=== PATIENT | male | born 1950 | race Caucasian/White ===

== ENCOUNTER 2023-03-30 12:43 | Inpatient (IN) | payer MEDICARE ==
[~2023-03-30 12:43] MED LIST: Magnevist 469MG/ML 20 ML VIAL ONE
[2023-03-30] MEDS ORDERED: Proparacaine 0.5% Opth 15 ML BOT ONE (13:15)
[2023-03-30] MEDS ORDERED: diphenhydrAMINE 50 MG/ML VIAL ONE (13:15)
[2023-03-30] MEDS ORDERED: Prochlorperazine 10 MG/2 ML VIAL ONE (13:15)
[2023-03-30 13:21] LABS: #Eosinphils 0.1 thou/uL (0.0-0.7); #Monocytes 0.3 thou/uL (0.11-0.59); #Neutrophils 6.2 thou/uL (1.40-6.50); %Basophils 0.4 % (0.0-1.0); %Eosinophils 0.6 % (0.0-10.0); %Lymphocytes 17.7 % (21.0-51.0); %Monocytes 4.2 % (0.0-10.0); %Neutrophils 76.7 % (42.0-75.0); Hemoglobin 14.8 g/dL (14.0-18.0); Mean Corpuscular HGB CONC 32.7 g/dL (32.0-36.0); Mean Corpuscular Hemoglobin 31.6 pg (27.0-31.0); Mean Corpuscular Volume 96.6 fl (78.0-98.0); Mean Platelet Volume 11.3 fL (7.4-10.4); Platelet Count 204 10x3/uL (130-400); RBC Distribution Width 12.9 % (11.5-14.5); Red Blood Cell (RBC) Count 4.68 mill/uL (4.70-6.10); White Blood Cell (WBC) Count 8.1 10x3/uL (4.8-10.8)
[2023-03-30] MEDS ORDERED: HYDROcodone/Acetaminophen 5/325 mg Tablet PO PRN (13:45)
[2023-03-30] MEDS ORDERED: Ondansetron PF 4 MG/2 ML Vial IVP PRN (13:45)
[2023-03-30] MEDS ORDERED: Acetaminophen 325 MG TAB PO PRN (13:45)
[2023-03-30 13:46] LABS: ALT (SGPT) 18 U/L (8-55); AST (SGOT) 12 U/L (5-34); Albumin 4.2 g/dL (3.4-4.8); Alkaline Phosphatase 71 U/L (40-110); Anion Gap 13 mmol/L (10-20); BUN (Urea Nitrogen) 16 mg/dL (8.4-25.7); Bilirubin, Total 0.7 mg/dL (0.2-1.2); Calc. Creatinine Clearance 0 mL/min (70-130); Calcium 9.1 mg/dL (7.8-10.44); Carbon Dioxide 21 mmol/L (23-31); Chloride 108 mmol/L (98-107); Estimated GFR 67; Globulin 2.8 g/dL (2.4-3.5); Glucose 147 mg/dL (83-110); Potassium 4.1 mmol/L (3.5-5.1); Sodium 138 mmol/L (136-145)
[2023-03-30 14:25] LABS: Hemoglobin A1c 6.7 % (4.0-6.0)
[2023-03-30] MEDS ORDERED: Aspirin 81 mg Enteric Coated Tablet PO SCH (14:30)
[2023-03-30] MEDS ORDERED: Morphine 4 MG/ML VIAL SLOW IVP PRN (16:07)
[2023-03-30] MEDS ORDERED: Dextrose 5% in Water 1,000 ML IV PRN (16:19)
[2023-03-30] MEDS ORDERED: HumaLOG 300 UNITS/3 ML VIAL SC PRN (16:19)
[2023-03-30] MEDS ORDERED: Dextrose 50% Abboject 50 ML SYRINGE SLOW IVP PRN (16:19)
[2023-03-30] MEDS ORDERED: Aspirin Chewable 81 MG TAB ONE (17:32)
[2023-03-30] MEDS ORDERED: Acetaminophen 325 MG TAB ONE (17:32)
[2023-03-30 21:21] VITALS: BMI 29.6
[2023-03-30] MEDS: Atorvastatin Calcium 40 MG TAB PO SCH (22:24)
[2023-03-31 04:35] LABS: #Eosinphils 0.1 thou/uL (0.0-0.7); #Monocytes 0.6 thou/uL (0.11-0.59); #Neutrophils 5.5 thou/uL (1.40-6.50); %Basophils 0.5 % (0.0-1.0); %Eosinophils 1.3 % (0.0-10.0); %Monocytes 7.3 % (0.0-10.0); %Neutrophils 62.6 % (42.0-75.0); Hemoglobin 14.3 g/dL (14.0-18.0); Mean Corpuscular HGB CONC 32.4 g/dL (32.0-36.0); Mean Corpuscular Hemoglobin 31.5 pg (27.0-31.0); Mean Corpuscular Volume 97.4 fl (78.0-98.0); Mean Platelet Volume 11.4 fL (7.4-10.4); Platelet Count 196 10x3/uL (130-400); RBC Distribution Width 12.8 % (11.5-14.5); Red Blood Cell (RBC) Count 4.54 mill/uL (4.70-6.10); White Blood Cell (WBC) Count 8.8 10x3/uL (4.8-10.8)
[2023-03-31 04:59] LABS: Anion Gap 13 mmol/L (10-20); BUN (Urea Nitrogen) 13 mg/dL (8.4-25.7); Calc. Creatinine Clearance 86 mL/min (70-130); Carbon Dioxide 22 mmol/L (23-31); Cardiac Risk 4.8 (Less than 4.5); Chloride 108 mmol/L (98-107); Cholesterol 191 mg/dl (< 200 Desired); Estimated GFR 85; Glucose 116 mg/dL (83-110); HDL Cholesterol 40 mg/dL (>60 Neg Risk); LDL Cholesterol, Calculated 101 mg/dL; Potassium 3.7 mmol/L (3.5-5.1); Sodium 139 mmol/L (136-145); Triglycerides 251 mg/dL (Less than 150)
[2023-03-31] MEDS: Fish Oil 1,000 MG CAP PO SCH (09:33)
[2023-03-31] MEDS: Escitalopram Oxalate 10 mg Tablet PO SCH (09:33)
[2023-03-31] MEDS: Aspirin 81 mg Enteric Coated Tablet PO SCH (09:33)
[2023-03-31] MEDS: Atorvastatin Calcium 40 MG TAB PO SCH (20:18)
[2023-04-01 05:47] LABS: #Basophils 0.1 thou/uL (0.0-0.2); #Eosinphils 0.2 thou/uL (0.0-0.7); #Monocytes 0.7 thou/uL (0.11-0.59); #Neutrophils 5.4 thou/uL (1.40-6.50); %Basophils 0.6 % (0.0-1.0); %Lymphocytes 28.6 % (21.0-51.0); %Monocytes 8.1 % (0.0-10.0); %Neutrophils 60.3 % (42.0-75.0); Hemoglobin 14.5 g/dL (14.0-18.0); Mean Corpuscular HGB CONC 33.1 g/dL (32.0-36.0); Mean Corpuscular Hemoglobin 31.9 pg (27.0-31.0); Mean Corpuscular Volume 96.5 fl (78.0-98.0); Mean Platelet Volume 11.1 fL (7.4-10.4); Platelet Count 201 10x3/uL (130-400); RBC Distribution Width 12.8 % (11.5-14.5); Red Blood Cell (RBC) Count 4.54 mill/uL (4.70-6.10)
[2023-04-01 06:43] LABS: Anion Gap 14 mmol/L (10-20); BUN (Urea Nitrogen) 16 mg/dL (8.4-25.7); Calc. Creatinine Clearance 81 mL/min (70-130); Calcium 9.2 mg/dL (7.8-10.44); Carbon Dioxide 22 mmol/L (23-31); Chloride 106 mmol/L (98-107); Estimated GFR 79; Glucose 112 mg/dL (83-110); Potassium 3.5 mmol/L (3.5-5.1); Sodium 138 mmol/L (136-145)
[2023-04-01] MEDS: Fish Oil 1,000 MG CAP PO SCH (10:41)
[2023-04-01] MEDS: Aspirin 81 mg Enteric Coated Tablet PO SCH (10:41)
[2023-04-01] MEDS: Escitalopram Oxalate 10 mg Tablet PO SCH (10:41)
[2023-04-01] MEDS ORDERED: Zolpidem Tartrate 5 MG TAB PO PRN (19:48)
[2023-04-01] MEDS: Atorvastatin Calcium 40 MG TAB PO SCH (20:06)
[2023-04-02 05:29] LABS: #Eosinphils 0.2 thou/uL (0.0-0.7); #Monocytes 0.8 thou/uL (0.11-0.59); #Neutrophils 4.8 thou/uL (1.40-6.50); %Basophils 0.4 % (0.0-1.0); %Eosinophils 2.1 % (0.0-10.0); %Lymphocytes 33.7 % (21.0-51.0); %Monocytes 9.3 % (0.0-10.0); %Neutrophils 54.3 % (42.0-75.0); Mean Corpuscular HGB CONC 32.3 g/dL (32.0-36.0); Mean Corpuscular Hemoglobin 30.9 pg (27.0-31.0); Mean Corpuscular Volume 95.7 fl (78.0-98.0); Mean Platelet Volume 11.4 fL (7.4-10.4); Platelet Count 213 10x3/uL (130-400); RBC Distribution Width 12.7 % (11.5-14.5); Red Blood Cell (RBC) Count 5.17 mill/uL (4.70-6.10); White Blood Cell (WBC) Count 8.9 10x3/uL (4.8-10.8)
[2023-04-02 06:01] LABS: Anion Gap 13 mmol/L (10-20); BUN (Urea Nitrogen) 20 mg/dL (8.4-25.7); Calc. Creatinine Clearance 80 mL/min (70-130); Calcium 9.1 mg/dL (7.8-10.44); Carbon Dioxide 20 mmol/L (23-31); Chloride 106 mmol/L (98-107); Estimated GFR 78; Glucose 122 mg/dL (83-110); Potassium 3.4 mmol/L (3.5-5.1); Sodium 136 mmol/L (136-145)
[2023-04-02] MEDS: Aspirin 81 mg Enteric Coated Tablet PO SCH (08:58)
[2023-04-02] MEDS: Fish Oil 1,000 MG CAP PO SCH (08:58)
[2023-04-02] MEDS: Escitalopram Oxalate 10 mg Tablet PO SCH (08:58)
[2023-04-02 12:06] VITALS: BP 121/76; TEMP 97.9
== END 2023-04-02 15:38 | disposition home or self-care (01) | DRG 64 ==
LOC: SUATTDRO 12:43 → ERS 12:43 → ERHOLD 13:50 → NEURO 21:01
PROVIDERS: ADMIT Internal Medicine; ATTEND Internal Medicine
DX: I63.431 Cerebral infarction due to embolism of right posterior cerebral artery (principal); G93.6 Cerebral edema; I61.9 Nontraumatic intracerebral hemorrhage, unspecified; E78.00 Pure hypercholesterolemia, unspecified; E11.9 Type 2 diabetes mellitus without complications; E78.5 Hyperlipidemia, unspecified; G47.00 Insomnia, unspecified; F39 Unspecified mood [affective] disorder; I48.0 Paroxysmal atrial fibrillation; Z98.890 Other specified postprocedural states; Z90.49 Acquired absence of other specified parts of digestive tract
CPT/HCPCS: 36415; 70450; 70553; 80048; 80053; 80061; 83036; 84443; 85025; 85652; 93306; 93880; A9579; J0780; J1200

== ENCOUNTER 2023-06-01 13:30 | Outpatient (CLI) | payer MEDICARE | END 2023-06-01 13:31 | disposition home or self-care (01) | LOC: CT 13:30 | PROVIDERS: ATTEND Family Medicine | DX: R82.998 Other abnormal findings in urine (principal); K57.30 Diverticulosis of large intestine without perforation or abscess without bleeding | CPT/HCPCS: 74176 ==

== ENCOUNTER 2023-10-04 06:08 | Day surgery (SDC) | payer MEDICARE ==
[2023-09-25 13:26] VITALS: BMI 30.1
[2023-09-25 14:16] LABS: Hematocrit 46.6 % (38.8-50.0); Hemoglobin 15.3 g/dL (13.5-17.5); Mean Corpuscular HGB CONC 32.8 g/dL (32.0-36.0); Mean Corpuscular Hemoglobin 30.9 pg (27.0-33.0); Mean Corpuscular Volume 94.1 fl (81.2-95.1); Mean Platelet Volume 11.1 fl (7.4-10.4); Platelet Count 262 10x3/uL (150-450); RBC Distribution Width 13.1 % (11.5-14.5); Red Blood Cell (RBC) Count 4.95 10x6/uL (4.32-5.72); White Blood Cell (WBC) Count 7.9 10x3/uL (3.5-10.5)
[2023-09-25 14:22] LABS: Anion Gap 15 mmol/L (10-20); BUN (Urea Nitrogen) 24 mg/dL (8.4-25.7); Calc. Creatinine Clearance 62 mL/min (70-130); Calcium 9.8 mg/dL (7.8-10.44); Carbon Dioxide 24 mmol/L (23-31); Chloride 104 mmol/L (98-107); Estimated GFR 56; Glucose 129 mg/dL (83-110); Potassium 4.2 mmol/L (3.5-5.1); Sodium 139 mmol/L (136-145)
[2023-09-25 14:26] LABS: INR-International Normal Ratio 1.2; Prothrombin Time 12.4 sec (9.5-12.1)
[2023-10-04] MEDS ORDERED: Heparin 10,000 UNITS/ 10 ML VIAL ONE (06:55)
[2023-10-04] MEDS ORDERED: Heparin 25,000 units/D5W 500 ML ONE (06:55)
[2023-10-04] MEDS ORDERED: Phenylephrine 40 MG/NS 250 ML 250 ML ONE (07:14)
[2023-10-04] MEDS ORDERED: PROPOFOL 200 MG/20 ML VIAL ONE (07:49)
[2023-10-04] MEDS ORDERED: Rocuronium Bromide 10 MG/ML (10ML VIAL) ONE (07:49)
[2023-10-04] MEDS ORDERED: Protamine Sulfate 50 MG/5 ML VIAL ONE (10:21)
[2023-10-04] MEDS ORDERED: Iopamidol 370 76% 100 ML VIAL ONE (12:58)
== END 2023-10-04 15:38 | disposition home or self-care (01) ==
LOC: SDC 06:08
PROVIDERS: ATTEND Internal Medicine Cardiovascular Disease
PROC: B245ZZ4 Ultrasonography of Left Heart, Transesophageal (ICD-10-PCS; principal; 2023-10-04)
PROC: 4A0234Z Measurement of Cardiac Electrical Activity, Percutaneous Approach (ICD-10-PCS; 2023-10-04)
PROC: 02583ZZ Destruction of Conduction Mechanism, Percutaneous Approach (ICD-10-PCS; 2023-10-04)
DX: I48.19 Other persistent atrial fibrillation (principal); I48.4 Atypical atrial flutter; I34.0 Nonrheumatic mitral (valve) insufficiency; E11.9 Type 2 diabetes mellitus without complications; G47.33 Obstructive sleep apnea (adult) (pediatric); E78.5 Hyperlipidemia, unspecified; Z86.73 Personal history of transient ischemic attack (TIA), and cerebral infarction without residual deficits; Z87.891 Personal history of nicotine dependence; Z79.899 Other long term (current) drug therapy; Z79.84 Long term (current) use of oral hypoglycemic drugs; Z79.01 Long term (current) use of anticoagulants
CPT/HCPCS: 80048; 85027; 85610; 93005; 93312; 93655; 93656; 93657; C1732; C1759; C1760; C1769; C1894 ×6; C2630; J1644; J2704; J2720; Q9967

== ENCOUNTER 2024-12-10 07:30 | Outpatient (CLI) | payer MEDICARE | END 2024-12-10 07:31 | disposition home or self-care (01) | LOC: SCSMRI 07:30 | PROVIDERS: ATTEND Family Medicine | DX: R93.2 Abnormal findings on diagnostic imaging of liver and biliary tract (principal); K76.89 Other specified diseases of liver | CPT/HCPCS: 74183 ==